=== PATIENT | male | born 1960 | race Caucasian/White ===

== ENCOUNTER 2017-12-23 13:30 | Inpatient (IN) | payer BC ==
[~2017-12-23] VITALS: Ht 177.8 cm; Wt 127.8 kg
[~2017-12-23 13:30] MED LIST: COLCHICINE,COL0.6 MG PO; FUROSEMIDE80 MG PO; K-DUR20 MEQ PO; LASIX20 MG PO; LASIX40 MG PO; LASIX80 MG PO; LIPITOR20 MG PO; LIPITOR40 MG PO; LITE COAT ASPI325 M1 PO; LOPRESSOR25 MG PO; METOPROLOL SUCC25 MG PO; MICRO-K,K-DUR,10 MEQ PO; MOBIC7.5 MG PO; MULTAQ400 MG PO; NORCO 5/3251 TABLET PO; PROTONIX40 MG PO; VALIUM5 MG PO; ZESTRIL,PRINIV2.5 MG PO; ZESTRIL20 MG PO; ZITHROMAX250 MG PO
[2017-12-23 15:00] LABS: HEMATOCRIT 42.1 % (38.0-50.0); HEMOGLOBIN 14.2 G/DL (12.5-16.6); MCHC 33.7 G/DL (30.0-36.0); MCV 86.1 FL (86-99); PLATELET COUNT 242 K/uL (156-360); RBC DIS.WIDTH-CV 13.3 % (11.8-14.6); RBC DIS.WIDTH-SD 41.8 % (39-53); RED BLOOD COUNT 4.89 M/uL (4.00-5.50); WHITE BLOOD COUNT 13.2 K/uL (4.1-10.2)
[2017-12-23 15:12] LABS: CHLORIDE 98 mEq/L (99-109); POTASSIUM 4.8 mEq/L (3.7-5.4); SODIUM 135 mEq/L (136-147)
[2017-12-23 15:14] LABS: GLUCOSE 139 mg/dL (70-99)
[2017-12-23 15:18] LABS: CREATININE 4.7 mg/dL (0.6-1.3); GFR ESTIMATE (CALCULATED) 14 mL/min/ (58.99-99999)
[2017-12-23 15:19] LABS: UREA NITROGEN (BUN) 57 mg/dL (9-23)
[2017-12-23 15:22] LABS: TROP-I INTERPRETATION NEGATIVE; TROPONIN-I < 0.01 ng/mL (0.0-0.30)
[2017-12-23] MEDS ORDERED: METFORMIN HCL500 MG PO (16:23)
[2017-12-23] MEDS ORDERED: FLONASE16 G1 BOTH NARES (16:24)
[2017-12-23 17:39] LABS: APPEARANCE CLEAR ((CLEAR)); BILIRUBIN NEGATIVE; BLOOD NEGATIVE; COLOR YELLOW ((YELLOW)); GLUCOSE (STRIP) NEGATIVE; KETONES NEGATIVE; LEUKOCYTES NEGATIVE; NITRITE NEGATIVE; PROTEIN (STRIP) 30; SPECIFIC GRAVITY 1.017 (1.000-1.030); UCUL ADDED? NO; UROBILINOGEN 0.2 MG/DL (0.2-1.0)
[2017-12-23 22:15] LABS: ALBUMIN 4.1 g/dL (3.2-4.8)
[2017-12-23 22:18] LABS: TOTAL PROTEIN 7.4 g/dL (6.4-8.3)
[2017-12-23 22:20] LABS: ALKALINE PHOSPHATASE 94 IU/L (3-129); TOTAL BILIRUBIN 0.5 mg/dL (0.0-1.0)
[2017-12-23 22:23] LABS: AST (GOT) 28 IU/L (2-34)
[2017-12-23 22:24] LABS: ALT (GPT) 27 IU/L (3-49)
[2017-12-23 22:44] VITALS: BP 123/58
[2017-12-23 22:56] LABS: HDL CHOLESTEROL 31 MG/DL (Desirable>=40); LDL CHOLESTEROL 49 mg/dL (Desirable<100); NON-HDL CHOLESTEROL 110 mg/dL (Desirable<160); TOTAL CHOLESTEROL 141 mg/dL (Desirable<200); TRIGLYCERIDES 306 MG/DL (Normal: <150)
[2017-12-24 04:16] VITALS: BP 126/58
[2017-12-24 07:02] VITALS: BP 117/60
[2017-12-24 08:14] LABS: BASOPHIL (%) 0.6 % (0-1); BASOPHIL COUNT 0.1 K/uL (0-0.1); EOSINOPHIL (%) 2.6 % (0-5); EOSINOPHIL COUNT 0.4 K/uL (0-0.3); IMMATURE GRANULOCYTE (%) 0.5 % (0.0-0.7); LYMPHOCYTE (%) 15.3 % (15-42); LYMPHOCYTE COUNT 2.1 K/uL (1.0-2.8); MONOCYTE (%) 11.8 % (3-12); MONOCYTE COUNT 1.6 K/uL (0-0.8); NEUTROPHIL (%) 69.2 % (45-76); NEUTROPHIL COUNT 9.3 K/uL (1.8-6.4)
[2017-12-24 09:44] LABS: HEMOGLOBIN A1c (GLYCOHEMOGLOB) 6.6 % (Below 5.7)
[2017-12-24 11:05] VITALS: BP 122/58
[2017-12-24 15:21] VITALS: BP 131/59
[2017-12-24 15:21] LABS: CREATINE KINASE 73 IU/L (1-294)
[2017-12-24 19:28] VITALS: BP 140/65
[2017-12-25 00:03] VITALS: BP 126/63
[2017-12-25 03:40] VITALS: BP 130/65
[2017-12-25 06:25] LABS: BASOPHIL (%) 0.4 % (0-1); EOSINOPHIL (%) 2.5 % (0-5); EOSINOPHIL COUNT 0.3 K/uL (0-0.3); HEMATOCRIT 40.2 % (38.0-50.0); IMMATURE GRANULOCYTE (%) 0.7 % (0.0-0.7); LYMPHOCYTE COUNT 1.5 K/uL (1.0-2.8); MCH 28.9 PG (29.0-34.0); MCHC 32.3 G/DL (30.0-36.0); MCV 89.3 FL (86-99); MONOCYTE (%) 13.2 % (3-12); MONOCYTE COUNT 1.3 K/uL (0-0.8); NEUTROPHIL (%) 68.2 % (45-76); NEUTROPHIL COUNT 6.9 K/uL (1.8-6.4); PLATELET COUNT 190 K/uL (156-360); RBC DIS.WIDTH-CV 13.2 % (11.8-14.6); RBC DIS.WIDTH-SD 43.6 % (39-53); WHITE BLOOD COUNT 10.2 K/uL (4.1-10.2)
[2017-12-25 06:35] LABS: CHLORIDE 110 mEq/L (99-109); POTASSIUM 5.5 mEq/L (3.7-5.4); SODIUM 139 mEq/L (136-147)
[2017-12-25 06:37] LABS: GLUCOSE 112 mg/dL (70-99)
[2017-12-25 06:41] LABS: GFR ESTIMATE (CALCULATED) > 59 mL/min/ (58.99-99999)
[2017-12-25 06:49] LABS: CREATININE 0.9 mg/dL (0.6-1.3); UREA NITROGEN (BUN) 21 mg/dL (9-23)
[2017-12-25 07:38] VITALS: BP 145/65
[2017-12-25 11:58] VITALS: BP 138/65
[2017-12-25] MEDS ORDERED: CEFUROXIME500 MG PO (13:10)
[2017-12-26] MEDS ORDERED: VENTOLIN HFA18 GM IH (18:10)
[2017-12-26] MEDS ORDERED: PERCOCET 5/31 TABLET PO (18:41)
== END 2017-12-25 14:40 | disposition home or self-care (01) | DRG 683 ==
LOC: EME 13:30 → ENRESERV 16:38 → CANRESERV 16:38 → EDOF 16:46 → 2EAST 16:46 → ENRESERV 17:01 → 2EAST 22:11
PROVIDERS: Emergency Medicine; Family Medicine; Internal Medicine Nephrology
DX: N17.9 Acute kidney failure, unspecified (principal); E86.0 Dehydration; E11.9 Type 2 diabetes mellitus without complications; I48.92 Unspecified atrial flutter; E87.5 Hyperkalemia; E78.5 Hyperlipidemia, unspecified; I10 Essential (primary) hypertension; E66.01 Morbid (severe) obesity due to excess calories; E87.2 Acidosis; J44.9 Chronic obstructive pulmonary disease, unspecified; L40.9 Psoriasis, unspecified; D72.829 Elevated white blood cell count, unspecified; I25.10 Atherosclerotic heart disease of native coronary artery without angina pectoris; F10.10 Alcohol abuse, uncomplicated; Z87.891 Personal history of nicotine dependence; Z82.49 Family history of ischemic heart disease and other diseases of the circulatory system; Z80.0 Family history of malignant neoplasm of digestive organs; Z83.3 Family history of diabetes mellitus; Z68.41 Body mass index [BMI] 40.0-44.9, adult; Z79.82 Long term (current) use of aspirin; Z79.84 Long term (current) use of oral hypoglycemic drugs
CPT/HCPCS: 71046; 76770; 80048; 80053; 80061; 81003; 82010; 82550; 82948; 83036; 83605; 84484; 84550; 85025; 85027; 93005; 99281; 99285; J0696; J7030; J7120

== ENCOUNTER 2017-12-26 12:06 | Emergency (ER) | payer BC ==
[~2017-12-26] VITALS: Ht 177.8 cm; Wt 132.4 kg
[~2017-12-26 12:06] MED LIST changes: +CEFUROXIME500 MG PO; +FLONASE16 G1 BOTH NARES; +METFORMIN HCL500 MG PO
[2017-12-26 13:06] LABS: HEMATOCRIT 41.7 % (38.0-50.0); HEMOGLOBIN 13.4 G/DL (12.5-16.6); MCH 29.1 PG (29.0-34.0); MCHC 32.1 G/DL (30.0-36.0); MCV 90.5 FL (86-99); PLATELET COUNT 216 K/uL (156-360); RBC DIS.WIDTH-CV 13.3 % (11.8-14.6); RBC DIS.WIDTH-SD 44.1 % (39-53); RED BLOOD COUNT 4.61 M/uL (4.00-5.50)
[2017-12-26 13:17] LABS: ALBUMIN 3.9 g/dL (3.2-4.8); CHLORIDE 106 mEq/L (99-109); POTASSIUM 4.9 mEq/L (3.7-5.4); SODIUM 140 mEq/L (136-147)
[2017-12-26 13:20] LABS: GLUCOSE 121 mg/dL (70-99); TOTAL PROTEIN 7.1 g/dL (6.4-8.3)
[2017-12-26 13:22] LABS: TOTAL BILIRUBIN 0.3 mg/dL (0.0-1.0)
[2017-12-26 13:23] LABS: ALKALINE PHOSPHATASE 93 IU/L (3-129); CREATININE 0.9 mg/dL (0.6-1.3); GFR ESTIMATE (CALCULATED) > 59 mL/min/ (58.99-99999)
[2017-12-26 13:24] LABS: UREA NITROGEN (BUN) 10 mg/dL (9-23)
[2017-12-26 13:25] LABS: AST (GOT) 20 IU/L (2-34)
[2017-12-26 13:26] LABS: ALT (GPT) 30 IU/L (3-49)
[2017-12-26 14:01] LABS: TROP-I INTERPRETATION NEGATIVE; TROPONIN-I < 0.01 ng/mL (0.0-0.30)
[2017-12-26 14:12] LABS: APPEARANCE CLEAR ((CLEAR)); BILIRUBIN NEGATIVE; BLOOD NEGATIVE; COLOR YELLOW ((YELLOW)); GLUCOSE (STRIP) 50; KETONES NEGATIVE; LEUKOCYTES NEGATIVE; NITRITE NEGATIVE; PROTEIN (STRIP) NEGATIVE; SPECIFIC GRAVITY 1.017 (1.000-1.030); UCUL ADDED? NO; UROBILINOGEN 0.2 MG/DL (0.2-1.0)
[2017-12-26 15:50] LABS: TROP-I INTERPRETATION NEGATIVE; TROPONIN-I < 0.01 ng/mL (0.0-0.30)
[2017-12-26] MEDS ORDERED: VENTOLIN HFA18 GM IH (18:10)
[2017-12-26] MEDS ORDERED: PERCOCET 5/31 TABLET PO (18:41)
[2017-12-26 19:00] VITALS: BP 148/76
== END 2017-12-26 19:01 | disposition home or self-care (01) ==
LOC: EME 12:06
PROVIDERS: Emergency Medicine
DX: J44.9 Chronic obstructive pulmonary disease, unspecified (principal); R07.89 Other chest pain; K76.0 Fatty (change of) liver, not elsewhere classified; I10 Essential (primary) hypertension; E78.5 Hyperlipidemia, unspecified; E11.9 Type 2 diabetes mellitus without complications; Z79.84 Long term (current) use of oral hypoglycemic drugs; Z79.82 Long term (current) use of aspirin; Z87.891 Personal history of nicotine dependence
CPT/HCPCS: 71045; 71275; 80053; 81003; 83880; 84484; 85027; 93005; 94640; 99281; 99284; J2270; J7030